=== PATIENT | male | born 1945 | race Caucasian/White ===

== ENCOUNTER → 2024-04-21 | Outpatient (CLI) | payer MEDICARE, BC, SELFPAY | END | disposition home or self-care (01) | LOC: SWHD 15:21 | PROVIDERS: PCP Internal Medicine Interventional Cardiology; Referring Provider Internal Medicine Interventional Cardiology; Visit Provider Student in an Organized Health Care Education/Training Program | DX: I87.311 Chronic venous hypertension (idiopathic) with ulcer of right lower extremity (principal); L97.521 Non-pressure chronic ulcer of other part of left foot limited to breakdown of skin; L97.511 Non-pressure chronic ulcer of other part of right foot limited to breakdown of skin; I10 Essential (primary) hypertension; R60.0 Localized edema | CPT/HCPCS: 99214; G0463 ==

== ENCOUNTER → 2024-05-05 | Outpatient (CLI) | payer MEDICARE, BC, SELFPAY | END | disposition home or self-care (01) | LOC: SWHD 14:46 | PROVIDERS: PCP Internal Medicine Interventional Cardiology; Referring Provider Internal Medicine Interventional Cardiology; Visit Provider Student in an Organized Health Care Education/Training Program | DX: I87.311 Chronic venous hypertension (idiopathic) with ulcer of right lower extremity (principal); L97.521 Non-pressure chronic ulcer of other part of left foot limited to breakdown of skin; L97.511 Non-pressure chronic ulcer of other part of right foot limited to breakdown of skin; I10 Essential (primary) hypertension; R60.0 Localized edema; L30.9 Dermatitis, unspecified | CPT/HCPCS: 99213; G0463 ==

== ENCOUNTER → 2024-05-19 | Outpatient (CLI) | payer MEDICARE, BC, SELFPAY | END | disposition left against medical advice (07) | LOC: SWHD 15:17 | PROVIDERS: PCP Internal Medicine Interventional Cardiology; Referring Provider Internal Medicine Interventional Cardiology; Visit Provider Student in an Organized Health Care Education/Training Program | DX: Z53.21 Procedure and treatment not carried out due to patient leaving prior to being seen by health care provider (principal) ==

== ENCOUNTER → 2024-05-28 | Outpatient (CLI) | payer MEDICARE, BC, SELFPAY | END | disposition home or self-care (01) | LOC: SWHD 14:28 | PROVIDERS: PCP Internal Medicine Interventional Cardiology; Referring Provider Internal Medicine Interventional Cardiology; Visit Provider Surgery | DX: I87.311 Chronic venous hypertension (idiopathic) with ulcer of right lower extremity (principal); L97.521 Non-pressure chronic ulcer of other part of left foot limited to breakdown of skin; L97.511 Non-pressure chronic ulcer of other part of right foot limited to breakdown of skin; I10 Essential (primary) hypertension; R60.0 Localized edema; L30.9 Dermatitis, unspecified | CPT/HCPCS: 99212; G0463 ==

== ENCOUNTER → 2024-07-15 | Outpatient (CLI) | payer MEDICARE, BC, SELFPAY | END | disposition home or self-care (01) | LOC: SWHD 08:07 | PROVIDERS: PCP Internal Medicine; Referring Provider Internal Medicine; Visit Provider Student in an Organized Health Care Education/Training Program | DX: I87.311 Chronic venous hypertension (idiopathic) with ulcer of right lower extremity (principal); L97.521 Non-pressure chronic ulcer of other part of left foot limited to breakdown of skin; L97.511 Non-pressure chronic ulcer of other part of right foot limited to breakdown of skin; I10 Essential (primary) hypertension; R60.0 Localized edema; L30.9 Dermatitis, unspecified | CPT/HCPCS: 29580; 99213; G0463 ==

== ENCOUNTER → 2024-07-18 | Outpatient (CLI) | payer MEDICARE, BC, SELFPAY | END | disposition home or self-care (01) | LOC: SWHD 08:58 | PROVIDERS: PCP Internal Medicine Interventional Cardiology; Referring Provider Internal Medicine Interventional Cardiology; Visit Provider Surgery | DX: I87.311 Chronic venous hypertension (idiopathic) with ulcer of right lower extremity (principal); L97.521 Non-pressure chronic ulcer of other part of left foot limited to breakdown of skin; L97.511 Non-pressure chronic ulcer of other part of right foot limited to breakdown of skin; R60.0 Localized edema; L30.9 Dermatitis, unspecified; I10 Essential (primary) hypertension | CPT/HCPCS: 29580 ==

== ENCOUNTER → 2024-07-22 | Outpatient (CLI) | payer MEDICARE, BC, SELFPAY | END | disposition home or self-care (01) | LOC: SWHD 10:59 | PROVIDERS: PCP Internal Medicine Interventional Cardiology; Referring Provider Internal Medicine Interventional Cardiology; Visit Provider Student in an Organized Health Care Education/Training Program | DX: I87.311 Chronic venous hypertension (idiopathic) with ulcer of right lower extremity (principal); L97.521 Non-pressure chronic ulcer of other part of left foot limited to breakdown of skin; R60.0 Localized edema; L30.9 Dermatitis, unspecified; I10 Essential (primary) hypertension | CPT/HCPCS: 29581 ==

== ENCOUNTER → 2024-07-29 | Outpatient (CLI) | payer MEDICARE, BC, SELFPAY | END | disposition home or self-care (01) | LOC: SWHD 08:30 | PROVIDERS: PCP Internal Medicine Interventional Cardiology; Referring Provider Internal Medicine Interventional Cardiology; Visit Provider Student in an Organized Health Care Education/Training Program | DX: I87.311 Chronic venous hypertension (idiopathic) with ulcer of right lower extremity (principal); L97.521 Non-pressure chronic ulcer of other part of left foot limited to breakdown of skin; R60.0 Localized edema; L30.9 Dermatitis, unspecified; I10 Essential (primary) hypertension | CPT/HCPCS: 29581; A9270 ==

== ENCOUNTER → 2024-08-05 | Outpatient (CLI) | payer MEDICARE, BC, SELFPAY | END | disposition home or self-care (01) | LOC: SWHD 08:31 | PROVIDERS: PCP Internal Medicine Interventional Cardiology; Referring Provider Internal Medicine Interventional Cardiology; Visit Provider Student in an Organized Health Care Education/Training Program | DX: I87.311 Chronic venous hypertension (idiopathic) with ulcer of right lower extremity (principal); L97.521 Non-pressure chronic ulcer of other part of left foot limited to breakdown of skin; R60.0 Localized edema; L30.9 Dermatitis, unspecified | CPT/HCPCS: 99212; G0463 ==

== ENCOUNTER → 2025-02-27 | Outpatient (CLI) | payer MEDICARE, BC, SELFPAY ==
[2025-02-27 10:13] LABS: Collection Type, Urine Clean Catch; Squamous Epithelial Cell,Urine 0 /hpf (0-5)
[2025-02-27 10:32] LABS: Basophils # (Auto) 0.0 Thou/mm3 (0.0-0.2); Basophils % (Auto) 1 % (0-2.5); Eosinophils # (Auto) 0.4 Thou/mm3 (0.0-0.5); Eosinophils % (Auto) 7 % (0-10); Hematocrit 40.4 % (41.0-53.0); Hemoglobin 12.9 g/dL (13.5-16.0); Immature Granulocytes Auto 0.01 Thou/mm3 (0.00-0.00); Lymphocytes # (Auto) 1.3 Thou/mm3 (1.0-4.8); Lymphocytes % (Auto) 26 % (10-50); Mean Corpuscular HGB Conc 31.9 g/dl (31.0-37.0); Mean Corpuscular Hemoglobin 29.7 pg (25.0-35.0); Mean Corpuscular Volume 93 fL (80-100); Monocytes # (Auto) 0.5 Thou/mm3 (0.0-0.8); Monocytes % (Auto) 10 % (0-12); Neutrophils # (Auto) 2.8 Thou/mm3 (1.8-7.7); Neutrophils % (Auto) 56 % (37-80); Nucleated Red Blood Cell # 0.00 Thou/mm3 (0.00-0.00); Nucleated Red Blood Cell % 0 /100 WBC (0); Platelet Count 286 Thou/mm3 (140-440); RDW Standard Deviation 46.6 fL (35.1-43.9); Red Blood Count 4.35 Miln/mm3 (4.50-5.90); White Blood Count 5.1 Thou/mm3 (3.8-10.6)
[2025-02-27 10:37] LABS: Bilirubin,Urine Negative (Negative); Blood,Urine Negative (Negative); Clarity,Urine Clear (Clear/Hazy); Color,Urine Lt-Yellow (Lt Yel-Yel); Culture Indicated,Urine Not Indicated; Glucose, Urine Negative (Negative); Ketones,Urine 1+ (Negative); Leukocyte Esterase,Urine Negative (Negative); Nitrite,Urine Negative (Negative); PH,Urine 6.0 (5.0-7.0); Protein,Urine Negative (Neg - Trace); RBC,Urine 1 /hpf (0-3); Specific Gravity,Urine 1.020 (1.001-1.035); Urobilinogen,Urine Negative mg/dL (0.0-1.0); WBC,Urine < 1 /hpf (0-5)
[2025-02-27 10:43] LABS: Glucose Estimated Average 114 mg/dL (80-131); Hemoglobin A1C 5.6 % Hgb (4.8-6.0)
[2025-02-27 10:55] LABS: Prostate Specific Antigen 1.46 ng/mL (0-4.00)
[2025-02-27 10:59] LABS: Vitamin D 25 Hydroxy Total 53.9 ng/mL (7.3-40.2)
[2025-02-27 11:02] LABS: Carbon Dioxide 22.7 mMol/L (20.0-31.0); Chloride 108 mMol/L (98-107); Potassium 4.8 mMol/L (3.4-5.1); Sodium 143 mMol/L (136-145)
[2025-02-27 11:03] LABS: Alanine Aminotransferase 33 U/L (10-49); Albumin, Serum 3.7 gm/dL (3.4-4.8); Albumin/Globulin Ratio 1.5 (1.2-2.2); Alkaline Phosphatase 77 U/L (46-116); Anion Gap 12 (7-16); Aspartate Amino Transferase 21 U/L (0-34); BUN/Creatinine Ratio 30 Ratio (12-20); Bilirubin,Total 1.0 mg/dL (0.3-1.2); Blood Urea Nitrogen 18 mg/dL (9-23); Calcium 9.9 mg/dL (8.3-10.6); Calcium (Corrected) 10.1 mg/dL (8.5-10.1); Cardiac Risk Estimate 2.0 RATIO (4.0-6.7); Cholesterol 124 mg/dL (132-200); Creatinine (Component) 0.6 mg/dL (0.6-1.3); Globulin 2.4 gm/dL (2.3-3.5); Glucose 63 mg/dL (74-106); HDL Cholesterol 61 mg/dL (40-60); LDL Cholesterol,Calculated 51 mg/dL (0-130); Osmolality,Calculated 284 (275-295); Thyroid Stimulating Hormone 1.11 uIU/mL (0.55-4.78); Total Protein 6.1 gm/dL (5.7-8.2); Triglycerides 59 mg/dL (30-150); eGFR > 60 See Note
== END | disposition home or self-care (01) ==
PROVIDERS: PCP Internal Medicine; Referring Provider Internal Medicine; Visit Provider Internal Medicine
DX: L30.9 Dermatitis, unspecified (principal); N40.0 Benign prostatic hyperplasia without lower urinary tract symptoms; I87.333 Chronic venous hypertension (idiopathic) with ulcer and inflammation of bilateral lower extremity
CPT/HCPCS: 36415; 80053; 80061; 81001; 82306; 83036; 84153; 84443; 85025